=== PATIENT | male | born 1965 | race Caucasian/White ===

== ENCOUNTER 2018-11-13 20:20 | Emergency (ER) | payer SELFPAY ==
[2018-11-13] MEDS ORDERED: ACETAMINOPHEN 325 MG TABLET PO ONE (20:40)
--- NOTE | 2018-11-13 21:48 | RADIOLOGY REPORT (SQ) ---
XR ELBOW 1-2 VIEWS CLINICAL STATEMENT: Injury to right elbow with deformity and pain COMPARISON: None FINDINGS: There is dislocation of the elbow joint. Mildly displaced comminuted fracture of the elbow is noted but fracture fragments adjacent to the distal humerus. However, origin of the fracture fragments is unclear on these views as overlapping dislocation limits evaluation. There may be originating from the coronoid process. IMPRESSION: Fracture dislocation of the elbow joint.
--- NOTE | 2018-11-13 22:20 | ER Document Report ---
Addendum entered and electronically signed by HAYES GONZALEZ PA-C 11/13/18 22:23: Provider Note Provider Note: Elbow X-Ray 11/13/18 20:39 IMPRESSION: Fracture dislocation of the elbow joint. Original Note: ED Medical Screen (RME) - General Chief Complaint: Arm Injury Stated Complaint: FALL,RIGHT ELBOW INJURY Time Seen by Provider: 11/13/18 22:07 Notes: HPI: 53-year-old male with no significant past medical history here for right elbow pain after accidental mechanical fall off of a trailer onto the ground onto his right elbow several hrs ago. no numbness or tingling. no surgeries on this arm. denies intoxication. denies hitting his head, any loc, or vomiting. no pain anywhere else. he is able to walk. he is left handed. last po intake was 7pm. no preceding injury sx. no other complaints at this time. no blood thinners. ROS neg to include 10 systems, unless mentioned in the hpi. PE:>>>> PHYSICAL_EXAM: GENERAL_APPEARANCE: well_nourished, alert, cooperative, no_acute_distress, mild _obvious_discomfort. pleasant, obese middle aged white male, smiling, speaking in full sentences, in no sign of resp distress,appears in pain with manipulation of his right elbow. VITALS: reviewed, see vital signs table. HEAD: no_swelling\tenderness on the head. normocephalic. atraumatic. no king signs. no raccoons eyes. EYES: PERRL, EOMI, conjunctiva_clear. NOSE: no_nasal_discharge. MOUTH: (-)decreased moisture. THROAT: no_tonsilar_inflammation, no_airway_obstruction. no_lymphadenopathy NECK: supple, no_neck_tenderness, full rom. full strength. no meningeal signs. no sign of central cord syndrome. BACK: no_back_tenderness. CHEST_WALL: no_chest_tenderness. no overlying skin changes LUNGS: no_wheezing, ctab (-)accessory muscle use, good air exchange bilateral. HEART: normal_rate, normal_rhythm, EXTREMITIES: strength 5/5 in all_extremities other than in the right elbow strength wasn't tested here due to pain and known fx, good pulses in all_extremities, no_swelling\tenderness in the extremities other than over right elbow that is diffusely swollen appears to have a deformity so rom and strength not assessed in the right elbow due to known fx on xr, no_edema. full rom other than in the right elbow where it is severely decreased and not tested due to known fx. normal gait. good pulses. brisk cap refill. good hand road worker. neg snuff box ttp NEURO: motor and sensation intact, SKIN: warm, dry, good_color, no_rash. MENTAL_STATUS: speech_clear, oriented_X_3, normal_affect, res ponds_appropriately to questions. MDM: I have ordered labs and initial work-up and patient will be transferred to the main ER for further work-up. I have greeted and performed a rapid initial assessment of this patient. A comprehensive ED assessment and evaluation of the patient, analysis of test results and completion of medical decision making process will be conducted by an additional ED providers. Documentation achieved through voice recording which my lead to some occasional accidental typographical errors. Extensive efforts have been made to proof read documentation to make sure these are the least as possible Temp Pulse Resp BP Pulse Ox 11/13/18 20:31 97.4 F 87 14 149/109 H 95 Category Date Time Status Ice/Elevate (ED) NOW Care 11/13/18 20:39 Active NPO (ED) NOW Care 11/13/18 22:22 Ordered sling [Immobilize Extrem/Crutch (ED)] NOW Care 11/13/18 22:22 Ordered ELBOW RIGHT AP/LAT [RAD] Stat Exams 11/13/18 20:39 Completed Acetaminophen [Tylenol 325 mg Tablet] Med 11/13/18 20:40 Discontinued 650 mg PO NOW ONE Morphine Sulfate [Morphine 10 mg/ml Inj] Med 11/13/18 22:22 Once 4 mg IV NOW ONE Ondansetron HCl/Pf [Zofran Inj/Pf 4 mg/2 ml Sdv] Med 11/13/18 22:22 Once 4 mg IV NOW ONE TRAVEL OUTSIDE OF THE [place] IN LAST 30 DAYS: No - Related Data Allergies/Adverse Reactions: bee sting Allergy (Uncoded 11/13/18 20:22) Physical Exam - Vital signs Vitals: Temp Pulse Resp BP Pulse Ox 97.4 F 87 14 149/109 H 95 11/13/18 20:31 11/13/18 20:31 11/13/18 20:31 11/13/18 20:31 11/13/18 20:31 Course - Vital Signs Vital signs: Temp Pulse Resp BP Pulse Ox 97.4 F 87 14 149/109 H 95 11/13/18 20:31 11/13/18 20:31 11/13/18 20:31 11/13/18 20:31 11/13/18 20:31
[2018-11-13] MEDS ORDERED: MORPHINE SULFATE 10 MG/ML INJ IV ONE (22:22)
[2018-11-13] MEDS ORDERED: ONDANSETRON HCL INJ/PF 4 MG/2 ML SDV IV ONE (22:22)
[2018-11-14] MEDS ORDERED: HYDROMORPHONE HCL INJ/PF 2 MG/ML AMPULE IV ONE (03:34)
[2018-11-14] MEDS ORDERED: ONDANSETRON HCL INJ/PF 4 MG/2 ML SDV IV ONE (03:35)
[2018-11-14] MEDS ORDERED: KETOROLAC TROMETHAMINE INJ/PF 30 MG/1 ML SDV IV ONE (03:35)
[2018-11-14] MEDS ORDERED: NALOXONE HCL INJ 2 MG/2 ML DISP.SYRIN IV ONE (03:35)
[2018-11-14] MEDS ORDERED: PROPOFOL INJ 200 MG/20 ML VIAL IV ONE (03:36)
[2018-11-14] MEDS ORDERED: FENTANYL CITRATE INJ/PF 100 MCG/2 ML AMPUL IV ONE (03:37)
--- NOTE | 2018-11-14 05:06 | ER Document Report ---
ED General - General Chief Complaint: Arm Injury Stated Complaint: FALL,RIGHT ELBOW INJURY Time Seen by Provider: 11/13/18 22:07 Mode of Arrival: Ambulatory Information source: Patient TRAVEL OUTSIDE OF THE [place] IN LAST 30 DAYS: No - HPI Notes: HPI: 53-year-old male with no significant past medical history here for right elbow pain after accidental mechanical fall off of a trailer onto the ground onto his right elbow several hrs ago. no numbness or tingling. no surgeries on this arm. denies intoxication. denies hitting his head, any loc, or vomiting. no pain anywhere else. he is able to walk. he is left handed. last po intake was 7pm. no preceding injury sx. no other complaints at this time. no blood thinners. No neck pain or shoulder pain or back pain or head injury or wrist pain. Patient has history of diet-controlled diabetes and his blood sugar was 130 yesterday. There is a history of hypertension. - Related Data Allergies/Adverse Reactions: bee sting Allergy (Uncoded 11/13/18 20:22) Past Medical History - General Information source: Patient - Social History Smoking Status: Never Smoker Frequency of alcohol use: None Drug Abuse: None Lives with: Alone Family History: Reviewed & Not Pertinent Patient has suicidal ideation: No Patient has homicidal ideation: No Renal/ Medical History: Denies: Hx Peritoneal Dialysis Review of Systems - Review of Systems -: Yes All other systems reviewed and negative Physical Exam - Vital signs Vitals: Temp Pulse Resp BP Pulse Ox 97.4 F 87 14 149/109 H 95 11/13/18 20:31 11/13/18 20:31 11/13/18 20:31 11/13/18 20:31 11/13/18 20:31 Course - Vital Signs Vital signs: Temp Pulse Resp BP Pulse Ox 98.1 F 70 16 137/84 H 95 11/14/18 02:16 11/14/18 05:12 11/14/18 05:12 11/14/18 05:12 11/14/18 05:12 Discharge - Discharge Clinical Impression: Elbow fracture, right Qualifiers: Encounter type: initial encounter Fracture type: closed Qualified Code(s): S42.401A - Unspecified fracture of lower end of right humerus, initial encounter for closed fracture Elbow dislocation Qualifiers: Encounter type: initial encounter Laterality: right Qualified Code(s): S53.104A - Unspecified dislocation of right ulnohumeral joint, initial encounter Condition: Stable Disposition: HOME, SELF-CARE Instructions: Supracondylar Fracture of the Elbow ([facility]) Additional Instructions: Elevate arm for pain. Follow-up with orthopedics in 3 days. Return to the ED in case of numbness, paresthesia, severe pain. Prescriptions: Hydrocodone/Acetaminophen [Stevenson 5-325 Tablet] 1 each PO Q4HP PRN #30 tablet PRN Reason:
--- NOTE | 2018-11-14 05:30 | RADIOLOGY REPORT (SQ) ---
EXAM DESCRIPTION: XR ELBOW 1-2 VIEWS COMPLETED DATE/TME: 11/14/2018 04:28 CLINICAL HISTORY: 53 years Male, s/p fracture dislocation reduction COMPARISON: Same day. FINDINGS: XR RIGHT ELBOW 2 VIEWS 2 view demonstrate with improved alignment and cast/splint/bandaging of the previously described fracture site. IMPRESSION: Fracture follow-up.
[2018-11-14] MEDS ORDERED: HYDROCODONE/ACETAMINOPHEN 5-325 MG (6 TAB/ER DISP) PO PRN (07:07)
[2018-11-14 07:49] VITALS: BP 145/84
== END 2018-11-14 07:48 | disposition home or self-care (01) ==
LOC: ER 20:20
DX: S42.401A Unspecified fracture of lower end of right humerus, initial encounter for closed fracture (principal); S53.104A Unspecified dislocation of right ulnohumeral joint, initial encounter; W17.89XA Other fall from one level to another, initial encounter
CPT/HCPCS: 96376; 99283; 99152; 96374; 96375; 73070 ×2; 24600; J3010; J1885; J2270; J1170; J2405 ×2; J2704

== ENCOUNTER → 2018-12-08 | Outpatient (CLI) | payer OTHER ==
--- NOTE | 2018-12-08 10:02 | RADIOLOGY REPORT (SQ) ---
EXAM DESCRIPTION: CT RT UPPER EXTREMITY WITHOUT COMPLETED DATE/TIME: 12/08/2018 8:56 am REASON FOR STUDY: S59.901A UNSPECIFIED INJURY OF RIGHT ELBOW, INITIAL ENCOUNTER S59.901A UNSPECIFIE D INJURY OF RIGHT ELBOW, INITIAL ENCOUNTE COMPARISON: None. TECHNIQUE: Axial imaging performed through the right elbow with reformatted oblique coronal and obli que sagittal imaging windowed for bone and soft tissues. Additional 3D reconstructions with shaded surface display were generated on an independent workstatio n. Additional 3 dimensional post-processing performed to develop Maximal Intensity Projection images (MIP) All CT scanners at this facility use dose modulation, iterative reconstruction, and/or weight based d osing when appropriate to reduce radiation dose to as low as reasonably achievable (ALARA). [facility]: Dose Right [facility]: CareDose [facility]: Dose Right [facility]: Teradose 4D [facility]: [employer] RADIATION DOSE: CT Rad equipment meets quality standard of care and radiation dose reduction techniq ues were employed. CTDIvol: 4.6 mGy. DLP: 98 mGy-cm. mGy. LIMITATIONS: None. FINDINGS: Prior plain films 11/13/2018 were reviewed. Patient had an acute or dislocation of the rad ial and aspect of the humerus at that time. CT scanning was performed with the right elbow at 90 of flexion. The radial head and proximal radius in the field of view is normal. The radiocarpal attacked, with i ntact articular surfaces on sagittal images 12-14 (series 300). There are multiple loose body fragments in the ventral and dorsal aspect of the ulna humeral joint be st shown on sagittal series 300, images 16-25. Donor site for intra-articular loose bodies is seen a long the posterior aspect of the stroke Yayo on sagittal reconstruction image 23. Donor site for loos e body is also seen along the coronoid process of the ulna. There is a persistent joint effusion elevating the ventral and dorsal fat pads. Triceps tendon, kaylie ps tendon distally are grossly intact. IMPRESSION: Post closed reduction of elbow dislocation in October. There are small intra-articular l oose bodies related to fractures off the trochlea, distal humerus, and coronoid process of the ulna. TECHNICAL DOCUMENTATION: JOB ID: [id number] Quality ID # [id number]: Final reports with documentation of one or more dose reduction techniques (e.g., Au tomated exposure control, adjustment of the mA and/or kV according to patient size, use of iterative reconstruction technique) 2010 [employer]- All Rights Reserved Reading location - IP/workstation name: [email or web address]
== END ==
LOC: RAD 08:34
PROVIDERS: ATTEND Orthopaedic Surgery
DX: S59.901A Unspecified injury of right elbow, initial encounter (principal); X58.XXXA Exposure to other specified factors, initial encounter; M24.021 Loose body in right elbow